=== PATIENT | female | born 1950 | race Caucasian/White ===

== ENCOUNTER 2023-03-28 08:38 | Day surgery (SDC) | payer MEDICARE, OTHER, SELFPAY ==
[2023-03-28] VITALS (8 sets, daily range): BP systolic 77–123; BP diastolic 45–89; PULSE 56–66; RESP 16; TEMP 36.6–36.8; O2SAT 94–100; BMI 19.8
[2023-03-28] MEDS: Lactated Ringers 1,000 ML 15 ML IV (09:05)
--- NOTE | 2023-03-28 09:26 | HP.PCM_ITS ---
HPI - General General Date of Admission: 05/16/20 Date of Service: 03/28/23 Chief Complaint: Personal history of colon polyps HPI Narrative GRADY OSEI, is a 72 F who presents for surveillance colonoscopy. She had a previous colonoscopy done with Dr. Ozzie Colon July 2012 demonstrating a rectal polyp. He had a more recent colonoscopy per Dr. George Cooper on April 2017 which apparently did not demonstrate a finding. He presents now for ongoing surveillance. She presents via open access today. She has no complaints today. She otherwise states that she is in good health. No abdominal pain. No bright red blood per rectum or melena. [facility] Medical History (Updated 03/28/23 @ 09:[address] Glenn Benitez MD) Actinic keratosis Alcohol use Arthritis Back pain Cancer History of wrist fracture Hx of adenomatous polyp of colon Leg cramps Non-smoker Squamous cell skin cancer, upper arm Wears glasses Home Medications calcium carbonate 600 mg calcium (1,500 mg) tablet 600 mg PO BID 04/09/17 [History Last Taken Unknown] cholecalciferol (vitamin D3) 25 mcg (1,000 unit) capsule (Vitamin D3) 2,000 unit PO DAILY 04/09/17 [History Last Taken Unknown] folic acid 0.8 mg capsule 0.8 mg PO DAILY 04/09/17 [History Last Taken Unknown] multivitamin (Multiple Vitamins tablet) 1 ea PO DAILY 04/09/17 [History Last Taken Unknown] raloxifene 60 mg tablet (Evista) 60 mg PO DAILY 04/09/17 [History Last Taken Unknown] Allergy/AdvReac Type Severity Reaction Status Date / Time ampicillin Allergy Hives Verified 03/28/23 09:06 aspirin Allergy Hives Verified 03/28/23 09:06 codeine Allergy Hives Verified 03/28/23 09:06 erythromycin base Allergy Hives Verified 03/28/23 09:06 Penicillins Allergy Hives Verified 03/28/23 09:06 red (food color) Allergy Hives Verified 03/28/23 09:06 Sulfa (Sulfonamide Allergy Hives Verified 03/28/23 09:06 Antibiotics) DUMULIN Allergy Intermediate RASH Uncoded 03/25/23 15:31 Family History (Updated 02/03/23 @ 14:56 by Génesis Herbert) Father Colon polyps Heart disease Mother Lung cancer Alzheimer disease Sister Breast cancer Aunt Breast cancer Surgical History (Updated 03/25/23 @ 15:40 by Xochitl Webber) History of colonoscopy History of dilation and curettage History of left breast biopsy History of surgery on left wrist History of total knee arthroplasty Hx of breast lump removal Hx of tonsillectomy Social History (Updated 02/03/23 @ 14:57 by Génesis Herbert) current occupational status: employed Smoking Status: Never smoker ROS Constitutional Constitutional: Reports systems reviewed and no addt'l complaints, except as documented Cardiovascular Cardiovascular: Denies chest pain Respiratory/Chest Respiratory/Chest: Denies shortness of breath at rest Gastrointestinal Gastrointestinal: Denies abdominal pain, change in bowel habits, hematochezia or melena Vital Signs Vital Signs Vital Signs: 03/28/23 09:06 03/28/23 09:06 Temperature 97.8 F Temperature Source Temporal Pulse Rate 64 Respiratory Rate 16 Respiratory Pattern Normal Blood Pressure 123/89 H Blood Pressure Mean 100 Blood Pressure Source Monitor Blood Pressure Position Sitting Blood Pressure Location Left Arm Pulse Ox 100 Oxygen Delivery Method Room Air Weight Weight: 108 lb 0.424 oz Body Mass Index (BMI) 19.8 Physical Exam Const alert, oriented x3 and no apparent distress General Appearance: cooperative and comfortable Eyes General Eye: normal appearance of both eyes Neck General: normal visual inspection Chest inspection of chest normal Resp Effort and Inspection: able to speak in complete sentences and symmetric chest movement Auscultation: clear to auscultation bilaterally Cardio regular rate and regular rhythm GI soft to palpation, non-tender and non-distended Extremity no calf tenderness Neuro oriented x3 Psych thought process normal Assessment & Plan Assessment/Plan (1) Hx of adenomatous polyp of colon: PLAN: The patient presents via open access today. I recommended surveillance colonoscopy with possible biopsy or polypectomy as indicated. She has had an opportunity to ask and have questions answered. We will proceed as noted. Glenn Benitez M.D., F.A.C.S.
--- NOTE | 2023-03-28 09:45 | COLBX_PTH ---
PATIENT: GRADY BROWN LOC: EN U#:[id number] AGE/SX: 72/F ROOM: RE03/28/[address]: Dr. Glenn Benitez MD : 1950 BED: DIS: 03/28/2023 SPEC #: [id number] RECD: 03/28/23 11:35 STATUS: JANKI GOOD #: [id number] MARIO: 03/28/23 09:[address]: Glenn Benitez DEPT: SURGICAL PATHOLOGY RECD BY: Lianna Krause ENTERED: 03/28/23 12:01 SP TYPE: COLON BX OTHR DR: Dr. Willie Rangel MD Tissues: A - Transverse colon B - Sigmoid colon biopsy Procedures: Surgery Specimen Level IV HEADER OPERATION: Colonoscopy - open access (MAC), biopsy PRE-OP DIAGNOSIS: History of adenomatous polyp of colon TISSUE SUBMITTED: A - Proximal transverse polyp biopsy, B - Proximal sigmoid and proximal rectum polyps biopsy MICROSCOPIC DIAGNOSIS A. Proximal transverse colon polyp, biopsy: Tubular adenoma. B. Proximal sigmoid and proximal rectal polyps, biopsy: Fragments of hyperplastic polyp. AM:drew 03/31/2023 MICROSCOPIC DESCRIPTION Slides are reviewed. GROSS DESCRIPTION A - Received in fixative is one container labeled with the patient's name and designated proximal transverse polyp biopsy. The specimen consists of one irregular fragment of light byrne soft tissue that measures 0.3 x 0.3 x 0.1 cm. The specimen is totally submitted in one cassette. B - Received in fixative is one container labeled with the patient's name and designated proximal sigmoid and proximal rectum polyps biopsy. The specimen consists of multiple irregular fragments of light byrne soft tissue that in aggregate measure 1.0 x 0.4 x 0.1 cm. The specimen is totally submitted in one cassette. / SJ:drew 03/28/2023 TC:5 CPT: 40683 x2
--- NOTE | 2023-03-28 10:07 | OP.COLON_ITS ---
Patient Name: Joselin Jenkins Procedure Date: 03/28/2023 9:30 AM Date of : 1950 Age: 72 Procedure: Colonoscopy Indications: High risk colon cancer surveillance: Personal history of colonic polyps Providers: Glenn Benitez MD Referring MD: Glenn Benitez MD Medicines: See the Anesthesia note for documentation of the administered medications Patient Profile: Last Colonoscopy: April 2017. Complications: No immediate complications. Procedure: Pre-Anesthesia Assessment: - Prior to the procedure, a History and Physical was performed, and patient medications and allergies were reviewed. The patient's tolerance of previous anesthesia was also reviewed. The risks and benefits of the procedure and the sedation options and risks were discussed with the patient. All questions were answered, and informed consent was obtained. Prior Anticoagulants: The patient has taken no previous anticoagulant or antiplatelet agents. ASA Grade Assessment: II - A patient with mild systemic disease. After reviewing the risks and benefits, the patient was deemed in satisfactory condition to undergo the procedure. After I obtained informed consent, the scope was passed under direct vision. Throughout the procedure, the patient's blood pressure, pulse, and oxygen saturations were monitored continuously. The adult colonoscope was introduced through the anus and advanced to the cecum, identified by appendiceal orifice and ileocecal valve. The colonoscopy was performed without difficulty. The patient tolerated the procedure well. The quality of the bowel preparation was good. The ileocecal valve and the appendiceal orifice were photographed. Scope In: 9:39:26 AM Scope Withdrawal Time 0 hours 9 minutes 26 seconds Scope Out: 9:59:39 AM Total Procedure Duration Time 0 hours 20 minutes 13 seconds Findings: The perianal and digital rectal examinations were normal. A 4 mm polyp was found in the proximal transverse colon. The polyp was sessile. The polyp was removed with a cold biopsy forceps. Resection and retrieval were complete. A 4 mm polyp was found in the proximal sigmoid colon. The polyp was sessile. The polyp was removed with a cold biopsy forceps. Resection and retrieval were complete. A 3 mm polyp was found in the rectum. The polyp was sessile. The polyp was removed with a cold biopsy forceps. Resection and retrieval were complete. Impression: - One 4 mm polyp in the proximal transverse colon, removed with a cold biopsy forceps. Resected and retrieved. - One 4 mm polyp in the proximal sigmoid colon, removed with a cold biopsy forceps. Resected and retrieved. - One 3 mm polyp in the rectum, removed with a cold biopsy forceps. Resected and retrieved. Recommendation: - Repeat colonoscopy in 5 years for surveillance based on pathology results. The proximal sigmoid polyp and proximal rectal polyp were placed in the same container - Telephone my office for pathology results in 1 week. - Continue present medications. Procedure Code(s): --- Professional --- 13358, Colonoscopy, flexible; with biopsy, single or multiple Diagnosis Code(s): --- Professional --- Z86.010, Personal history of colonic polyps D12.3, Benign neoplasm of transverse colon (hepatic flexure or splenic flexure) D12.5, Benign neoplasm of sigmoid colon K62.1, Rectal polyp CPT copyright 2017 [employer]. All rights reserved. The codes documented in this report are preliminary and upon vp & general counsel review may be revised to meet current compliance requirements. Glenn Benitez MD 03/28/2023 10:06:58 AM This report has been signed electronically. Number of Addenda: 0 Note Initiated On: 03/28/2023 9:30 AM
--- NOTE | 2023-03-28 10:08 | OP.CCLET_ITS ---
03/28/2023 Willie Rangel [address] [place] [address] Re : Colonoscopy procedure for Joselin Jenkins Dear Dr. Rangel This procedure was performed on Tuesday, March 28, 2023. My impressions and recommendations are as follows: Impressions : - One 4 mm polyp in the proximal transverse colon, removed with a cold biopsy forceps. Resected and retrieved. - One 4 mm polyp in the proximal sigmoid colon, removed with a cold biopsy forceps. Resected and retrieved. - One 3 mm polyp in the rectum, removed with a cold biopsy forceps. Resected and retrieved. Recommendations : - Repeat colonoscopy in 5 years for surveillance based on pathology results. The proximal sigmoid polyp and proximal rectal polyp were placed in the same container - Telephone my office for pathology results in 1 week. - Continue present medications. My findings are described in the full procedure note, which is enclosed. If I can be of further assistance, please feel free to contact me at Doctor phone number(s): Work: . Sincerely, Glenn Benitez MD 03/28/2023 10:06:58 AM This report has been signed electronically.
== END 2023-03-28 11:00 | disposition home or self-care (01) ==
LOC: EN 08:43 → AC 08:45
PROVIDERS: PCP Family Medicine; Referring Provider Family Medicine; Visit Provider Surgery
PROC: 0DJD8ZZ Inspection of Lower Intestinal Tract, Via Natural or Artificial Opening Endoscopic (ICD-10-PCS; CPT 45378; principal; 2023-03-28 09:40)
DX: Z12.11 Encounter for screening for malignant neoplasm of colon (principal); Z86.010 Personal history of colon polyps; K62.1 Rectal polyp; D12.3 Benign neoplasm of transverse colon
CPT/HCPCS: 45380; 88305; J7120; J2405

== ENCOUNTER 2024-07-23 08:08 | Emergency (ER) | payer MEDICARE, OTHER, SELFPAY ==
[2024-07-23 08:09] VITALS: BP 159/72; PULSE 65; RESP 18; TEMP 37; O2SAT 98
[2024-07-23 08:10] VITALS: BMI 20.6
[2024-07-23 08:23] VITALS: O2SAT 97
--- NOTE | 2024-07-23 08:25 | RAD_ITS ---
STUDY: X-RAY - MANDIBLE (COMPLETE) REASON FOR EXAM: Female, 73 years old. Pain after trauma TECHNIQUE: 5 view(s) of the mandible were obtained. COMPARISON: None. FINDINGS: Normal mandible. Normal visualized right temporomandibular joint. Normal visualized left temporomandibular joint. The remaining visualized osseous structures are normal. The soft tissue structures are unremarkable. RAD/Mandible Min 4 Views IMPRESSION: No demonstrated fracture, or suspicious osseous lesion. However, mandibular fractures can be subtle and overlooked due to overlapping osseous structures. If there is strong clinical suspicion of a fracture, recommend further evaluation with maxillofacial CT Electronically Signed: Richard Lorenzo MD at 8:44 EST ,
--- NOTE | 2024-07-23 08:25 | EX.ED.GENINJ ---
HPI History of Present Illness Chief Complaint: Head Injury Detail of Chief Complaint: Patient has laceration to the submental area complains of pain left condyle Informant: patient and spouse/S.O. Onset/Context/Timing Onset: Yesterday (Patient tripped on uneven sidewalk at 1700) Mechanism/Context: Blunt Injury (Laceration to chin with pain left-sided jaw and points to the left condyle.) Location of pain/injuries: - (Previously documented) Quality of Pain: Dull and Aching Location: Left side of the mandible Current Severity: Mild Maximum Severity: Moderate Worsened by: Palpation and opening closing her mouth Relieved by: Nothing Associated Symptoms Associated Symptoms: Negative for Parasthesias, Weakness, Loss of function, Inability to ambulate, Loss of consciousness or Amnesia Length of loss of consciousness: Patient states she was not dazed. Patient is not on antithrombotic or anti Narrative Narrative: Patient is a 73-year-old woman with no significant past medical history who was walking with her last evening. She tripped on uneven cement striking her chin against the concrete. She had no loss of conscious. She was not dazed. She denies neck pain. She denies paresthesia, anesthesia or motor weakness. She is on no anticoagulant or antithrombotic. She denies trauma to her teeth. She states she did bite the left side of her tongue. She has had no drooling. She is able to eat and drink. She denies headache. Denies visual, ocular auditory symptoms. She denies trouble with balance or coordination. Tetanus Immunization: <5 years Prior similar symptoms: No Recent Illness/Hospitalization: No PFSH PFS Medical History Wears glasses Cancer Alcohol use Back pain Leg cramps Non-smoker History of wrist fracture Arthritis Squamous cell skin cancer, upper arm Actinic keratosis Hx of adenomatous polyp of colon Home Medications ?Medication ?Instructions ?Recorded ?Last Taken ?Type calcium carbonate 600 mg PO BID 04/09/17 Unknown History cholecalciferol (vitamin D3) 25 2,000 unit PO DAILY 04/09/17 Unknown History mcg (1,000 unit) capsule (Vitamin D3) folic acid 0.8 mg capsule 0.8 mg PO DAILY 04/09/17 Unknown History multivitamin (Multiple Vitamins 1 ea PO DAILY 04/09/17 Unknown History tablet) raloxifene 60 mg tablet (Evista) 60 mg PO DAILY 04/09/17 Unknown History Allergy/AdvReac Type Severity Reaction Status Date / Time ampicillin Allergy Hives Verified 03/28/23 09:06 aspirin Allergy Hives Verified 03/28/23 09:06 codeine Allergy Hives Verified 03/28/23 09:06 erythromycin base Allergy Hives Verified 03/28/23 09:06 Penicillins Allergy Hives Verified 03/28/23 09:06 red (food color) Allergy Hives Verified 03/28/23 09:06 Sulfa (Sulfonamide Allergy Hives Verified 03/28/23 09:06 Antibiotics) DUMULIN Allergy Intermediate RASH Uncoded 03/25/23 15:31 Family History Father Colon polyps Heart disease Mother Lung cancer Alzheimer disease Sister Breast cancer Aunt Breast cancer Surgical History Hx of breast lump removal History of total knee arthroplasty Hx of tonsillectomy History of surgery on left wrist History of dilation and curettage History of left breast biopsy History of colonoscopy Social History (Updated 07/23/24 @ 08:[address] Shakir Zamudio MD) household members: spouse current occupational status: employed Smoking Status: Never smoker ROS ROS ED Constitutional Constitutional ED: Denies chills or fever(s) Eyes Eyes: Denies blurry vision or change in vision ENT ENT ED: Denies ear pain, rhinorrhea or sore throat Cardiovascular Cardiovascular: Denies chest pain Gastrointestinal Gastrointestinal: Denies nausea or vomiting Musculoskeletal Musculoskeletal: Denies arthralgias, myalgias or neck pain Integumentary Reports other Details: Laceration submental region Neurologic Neurologic: Denies headache(s), paresthesias or weakness Hematologic/Lymphatic Hematologic/Lymphatic: Denies easy bleeding or easy bruising EXAM Physical Exam Const Vital Signs: 07/23/24 08:09 07/23/24 08:23 Temperature 98.6 F Temperature Source Oral Pulse Rate 65 Respiratory Rate 18 Respiratory Effort Normal Respiratory Depth Normal Respiratory Pattern Normal Blood Pressure 159/72 H Blood Pressure Mean 101 Pulse Ox 98 97 Oxygen Delivery Method Room Air Room Air Positive well nourished and well developed General Appearance ED: well developed and NAD HEENT HEENT Narrative: Laceration submental region. The laceration is closed. There is no erythema, warmth, fluctuance. There is no trismus. She does have pain ovation over the left TMJ joint. Patient does have evidence that she bit the left side of her tongue. There is no active bleeding. Patient has no dysphonia. trauma Eyes PERRL and EOMs intact bilaterally General Eye ED: Yes other Other Details: There is no subconjunctival hemorrhage. Neck full ROM Neck Narrative: There is no posterior midline pain. Full active range of motion. Resp normal respiratory effort Cardio regular rhythm Rate: regular rate Back/Spine normal to inspection Extremity Extremity Narrative: There is an abrasion dorsal surface of the right hand. There is no evidence infection. There is no neurovasc compromise. Neuro oriented x3, CN's II-XII intact bilaterally, moves all extremities, no focal motor deficits, no sensory deficits noted and gait normal Neuro Narrative: Patient was observed walking from triage to her room. There is no dysmetria. Deep Tendon Reflexes: Rt Patellar (L4): 1+, Lt Patellar (L4): 1+, Rt Ankle (S1): 1+ and Lt Ankle (S1): 1+ Deep Tendon Reflexes Back: Rt Patellar (L4): 1+, Lt Patellar (L4): 1+, Rt Ankle (S1): 1+ and Lt Ankle (S1): 1+ Plantar Reflex: Downgoing: bilateral (There is no clonus.) Psych mental status grossly normal and thought process normal Skin Skin Narrative: Abrasion dorsum of right hand and laceration Chin MDM MDM MDM Narrative Medical decision making narrative: Since patient had no direct head trauma no loss of consciousness on no antithrombotic or anticoagulant per the [place] CT head rule imaging this head is not indicated. C-spine was cleared per Nexus criteria. Patient did have trouble sleeping. This may represent a concussion in all likelihood. A concussion is based on clinical findings and a normal exam. Because she has tenderness over the left condyle x-ray of the mandible was obtained to evaluate for fracture. Patient's tetanus is up-to-date. The laceration is essentially closed. Since there is no evidence of infection and this occurred approximately 16 hours ago the wound was not opened and sutured. Radiography Diagnostic Testing: Clinical Impression(s) from Imaging Studies Mandible X-Ray 07/23/24 08:25 IMPRESSION: No demonstrated fracture, or suspicious osseous lesion. However, mandibular fractures can be subtle and overlooked due to overlapping osseous structures. If there is strong clinical suspicion of a fracture, recommend further evaluation with maxillofacial CT Electronically Signed: Richard Lorenzo MD at 8:44 EST , After reading the radiologist report and concerned and possible need for CAT scan the tongue blade test was performed. Patient was able to bite down and have no difficulty with resistance and turning the tongue blade. Treatment and Re-Evaluation Narrative: Explained the patient what symptoms she may experience and she had a concussion. Her questions regarding concussion were answered. She was informed why a CAT scan was not performed. Discharge Plan Triage Chief Complaint: Head Injury ED Provider: Shakir Zamudio Dx/Rx/DC Orders Clinical Impression: Chin laceration, Contusion of mandibular joint area, Concussion without loss of consciousness Instructions: ED Concussion, ED Laceration, Old: Not Sutured Prescriptions: No Action multivitamin [Multiple Vitamins] 1 EACH tablet 1 ea PO DAILY calcium carbonate 600 MG tablet 600 mg PO BID raloxifene [Evista] 60 MG tablet 60 mg PO DAILY cholecalciferol (vitamin D3) [Vitamin D3] 1,000 UNIT capsule 2,000 unit PO DAILY folic acid 0.8 MG capsule 0.8 mg PO DAILY Primary Care Provider: Willie Rangel Referrals: Willie Rangel MD [Primary Care Provider] - Print Language: Italian Disposition Disposition: Home, Self Care
== END 2024-07-23 09:01 | disposition home or self-care (01) ==
PROVIDERS: Emergency Provider Emergency Medicine; PCP Family Medicine; Visit Provider Emergency Medicine
DX: S06.0X0A Concussion without loss of consciousness, initial encounter (principal); S01.81XA Laceration without foreign body of other part of head, initial encounter; W01.0XXA Fall on same level from slipping, tripping and stumbling without subsequent striking against object, initial encounter
CPT/HCPCS: 70110; 99282